=== PATIENT | female | born 1995 | race American Indian/Alaskan Native ===

== ENCOUNTER 2018-09-30 00:56 | Emergency (ER) | payer MEDICAID ==
[2018-09-30] MEDS ORDERED: IBUPROFEN PO ONE (08:14)
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
[2018-09-30 09:47] LABS: Bacteria,Urine 2+ /HPF (Negative); Bilirubin,Urine NEG (Negative); Blood,Urine NEG (Negative); Color,Urine Amber (Yellow); Mucus,Urine 3+ /HPF
[2018-09-30 09:49] LABS: HCG Qualitative,Urine Positive (Negative)
--- NOTE | 2018-09-30 12:39 | Ultrasound Report ---
ULTRASOUND OB LESS THAN 14 WEEKS FETUS ULTRASOUND OB TRANSVAGINAL History: + HCG with pelvic pain. Technique: Transabdominal and transvaginal imaging. Findings: The uterus is anteverted and measures 10 x 6 x 6 cm. No obvious uterine fibroid disease. The cervix is unremarkable. The endometrial stripe slightly complex and measures 1.6 cm. There appears to be trace endometrial fluid. No intrauterine gestational sac containing a pole and yolk sac is identified. No heart tones are demonstrated. The right ovary is unremarkable. The left ovary contains a 2.3 cm simple appearing cyst. No pelvic fluid collection. Impression: No intrauterine is demonstrated on ultrasound at this time. The endometrial stripe is slightly thickened and complex measuring up to 1.6 cm. No quantitative beta hCG levels are provided. This could represent a very early . Spontaneous with retained products of conception could be considered in the appropriate clinical scenario. Please note that an ectopic is not entirely excluded at this time.
[2018-09-30 13:11] VITALS: BP 106/56
== END 2018-09-30 13:11 | disposition home or self-care (01) ==
LOC: ED 00:56
DX: O9A.211 Injury, poisoning and certain other consequences of external causes complicating pregnancy, first trimester (principal); M54.5 Low back pain; O99.511 Diseases of the respiratory system complicating pregnancy, first trimester; J45.909 Unspecified asthma, uncomplicated; Z88.1 Allergy status to other antibiotic agents; Z88.0 Allergy status to penicillin; Z91.013 Allergy to seafood; Z3A.01 Less than 8 weeks gestation of pregnancy; V89.2XXA Person injured in unspecified motor-vehicle accident, traffic, initial encounter; Y93.89 Activity, other specified; Y92.488 Other paved roadways as the place of occurrence of the external cause; Y99.8 Other external cause status
CPT/HCPCS: 36415; 76801; 76817; 81001; 81025; 84702; 99284

== ENCOUNTER 2021-12-01 13:30 | Emergency (ER) | payer SELFPAY ==
--- NOTE | 2021-12-01 20:06 | Emergency Department Report ---
ED Psych HPI - General Chief Complaint: Psych Stated Complaint: SI Time Seen by Provider: 12/01/21 19:52 Source: patient Mode of arrival: Ambulatory - History of Present Illness Initial Comments: Ms. Jarrett is a 26-year-old female with a history of bipolar who now presents with anxiety and depression as scheduled with suicidal ideation. According to patient she says she had a mental breakdown last night before the suicide thought started crossing her mind too hard on her self. When asked specifically she denied having any plan always. Patient denies any chest pain or shortness of breath. She says she just started a new job 2 weeks ago and going through a lot of stress relating to do his job and started talking to the HR for when medical insurance was going to kick in. Patient denies any other modifying or associated factors. - Related Data Previous Rx's Medication Instructions Recorded Last Taken Type Dicyclomine [Bentyl] 20 mg PO QID #20 tablet 05/16/15 Unknown Rx Promethazine [Phenergan TAB] 25 mg PO Q6HR PRN #10 tab 05/16/15 Unknown Rx QUEtiapine [SEROquel] 100 mg PO HS #30 tablet 12/02/21 Unknown Rx Allergies Allergy/AdvReac Type Severity Reaction Status Date / Time amoxicillin Allergy Unknown Verified 12/01/21 13:40 Penicillins Allergy Unknown Verified 12/01/21 13:40 shellfish derived Allergy Unknown Verified 12/01/21 13:40 ED Review of Systems ROS: Stated complaint: SI Other details as noted in HPI Comment: All other systems reviewed and negative Psychiatric: suicidal thoughts. denies: homicidal thoughts ED Past Medical Hx - Past Medical History Previous Medical History?: Yes Hx Asthma: Yes Additional medical history: abd. pain - Social History Smoking Status: Never Smoker Substance Use Type: None - Medications Home Medications: Home Medications Medication Instructions Recorded Confirmed Last Taken Type Dicyclomine [Bentyl] 20 mg PO QID #20 tablet 05/16/15 Unknown Rx Promethazine [Phenergan TAB] 25 mg PO Q6HR PRN #10 tab 05/16/15 Unknown Rx QUEtiapine [SEROquel] 100 mg PO HS #30 tablet 12/02/21 Unknown Rx ED Physical Exam - General Limitations: No Limitations General appearance: alert, in no apparent distress, anxious - Head Head exam: Present: normal inspection - Eye Eye exam: Present: normal appearance Pupils: Present: normal accommodation - ENT ENT exam: Present: normal exam, normal orophraynx, mucous membranes moist - Neck Neck exam: Present: normal inspection, full ROM. Absent: tenderness - Respiratory Respiratory exam: Present: normal lung sounds bilaterally. Absent: respiratory distress, accessory muscle use - Cardiovascular Cardiovascular Exam: Present: regular rate, normal rhythm, normal heart sounds - GI/Abdominal GI/Abdominal exam: Present: soft, normal bowel sounds. Absent: distended, tenderness - Extremities Exam Extremities exam: Present: normal inspection, full ROM, normal capillary refill. Absent: tenderness, pedal edema, joint swelling - Back Exam Back exam: Present: normal inspection, full ROM. Absent: tenderness - Neurological Exam Neurological exam: Present: alert, oriented X3 - Psychiatric Psychiatric exam: Present: normal affect, normal mood - Skin Skin exam: Present: warm, normal color ED Course Vital Signs 12/01/21 12/01/21 12/01/21 13:36 20:30 21:00 Temperature 98.2 F 98.7 F Pulse Rate 88 81 Respiratory 14 18 Rate Blood Pressure 149/94 Blood Pressure 119/79 [Right] O2 Sat by Pulse 100 100 100 Oximetry 12/02/21 12/02/21 09:00 15:02 Temperature 98.8 F 98.8 F Pulse Rate 100 H 100 H Respiratory 16 16 Rate Blood Pressure Blood Pressure 149/94 149/94 [Right] O2 Sat by Pulse 97 97 Oximetry - Reevaluation(s) Reevaluation #1: 12/01/21 20:04 here with suicide ideation that started last night-- pt has history of bipolar -- who reports mental breakdown due to stressor at work-- will go ahead and order routine psych labs that include thyroid profile and cbc, cmp and ua with uds for any correctable cause-- will also consult with mental health for further evaluation and treatment and medical clearance. Reevaluation #2: 12/02/21 16:27 This patient discharged today after psychiatric visits to continue medication and follow-up outpatient. ED Medical Decision Making - Lab Data Result diagrams: 12/02/21 12:48 12/02/21 12:48 Critical care attestation.: If time is entered above; I have spent that time in minutes in the direct care of this critically ill patient, excluding procedure time. ED Disposition Clinical Impression: Suicide ideation, Anxiety Disposition: 01 HOME / SELF CARE / HOMELESS Is pt being admited?: No Does the pt Need Aspirin: No Condition: Stable Instructions: Suicidal Feelings: How to Help Yourself Additional Instructions: Professional and Agency Contacts To help [facility] (21/01) [place] Crisis Line: Suicide Prevention Line: Crisis Text Line: Text START to 956673 Emergency: 911 Outpatient [facility] Behavioral Health Resources: [place]: [facility] [address], [place] [address] [place]: [facility] [address] [place] [address] Saturday thru Saturday - 8am - 5pm Call to schedule an assessment for mental health and substance abuse programs [place]: [facility] Address: [address] [place] [address] Saturday thru Saturday- 7am-2pm [facility] Address: [address] [place] [address] Saturday thru Saturday: 8:30AM-5PM Prescriptions: QUEtiapine [SEROquel] 100 mg PO HS #30 tablet Referrals: GERMAN PITTMAN MD [Primary Care Provider] - 7 Days Forms: Work/School Release Form(ED)
[2021-12-02 09:02] LABS: Bacteria,Urine 1+ /HPF (Negative); Bilirubin,Urine NEG (Negative); Blood,Urine NEG (Negative); Color,Urine Amber (Yellow); Mucus,Urine 2+ /HPF; Urobilinogen,Urine < 2.0 mg/dL (<2.0)
[2021-12-02 09:09] LABS: Amphetamine Screen,Urine Negative; Benzodiazepines Screen,Urine Negative; Cannabinoid Screen,Urine Negative; Methadone Screen,Urine Negative; Opiate Screen,Urine Negative
[2021-12-02 09:20] VITALS: BP 149/94
--- NOTE | 2021-12-02 11:35 | Event Note ---
Date: 12/02/21 Patient is 26-year-old female admitted to the ER for suicidal ideation. Vital signs stable. Labs reviewed and showed a UTI. Patient started on Macrobid twice a day for 7 days. Waiting for inpatient psychiatric placement.
[2021-12-02] MEDS ORDERED: NITROFURANTOIN MONOHYD/M-CRYST 100 MG CAP PO SCH (12:00)
--- NOTE | 2021-12-02 12:55 | Consultation ---
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 Patient seen by me with her Nurse at bedside. She is calm and pleasant this morning. She reports that she was upset and stressed at work yesterday leading to her being agitated and was crying. She denies being suicidal. She wants to resume taking Seroquel which she finds beneficial Patient describes a good and stable mood this morning. She denies being depressed or excessively nervous. Patient eats and sleeps well. Patient denies panic attacks, recurrent nightmares or flashbacks. Patient denies sy mptoms suggestive of OCD or PTSD. Patient denies hallucinations, paranoia, thought interference and no features suggestive of hypomania or bijan. She completely denies suicidal or homicidal thoughts. PAST PSYCHIATRIC HISTORY: Diagnoses: Bipolar dx Suicide attempts x 1 at age 15 Prior psychiatric hospitalizations at age 15 Substance Abuse history: no Previous psychiatric medications tried: Seroquel Outpatient treatment: yes PAST MEDICAL HISTORY: Unremarkable Family Psychiatric History None reported or documented SOCIAL HISTORY Marital Status: single Living Arrangements: with boyfriend and her kids Employment Status: employed Access to guns/weapons: no Education: High school History of Abuse: no Legal History: no ROS: Constitutional: Negative for weight loss ENT: Negative for stridor Respiratory: Negative for cough or hemoptysis All other systems reviewed and are negative MENTAL STATUS General Appearance and Behavior: age appropriate, good eye contact, cooperative with questioning and polite Cooperation: Cooperative Psychomotor Behavior: within normal limits Mood: OK Affect and affective range: Congruent with stated mood Thought Process: Fluent/Logical and Goal-directed Thought Content: Within reality Speech: Normal volume and Regular rate and rhythm Intellectual Functioning Average Suicidal Ideation: Denies SI Homicidal Ideation: Denies HI Impulse Control: intact Insight and Judgment: normal insight and judgment Memory: Normal Attention: Normal Orientation: alert and oriented RECOMMENDATIONS MEDICATIONS: Seroquel 100mg qhs Risks, benefits and alternatives of medications discussed with the patient, questions answered and consent obtained from patient. PSYCHOTHERAPY: Supportive psychotherapy provided MEDICAL: Per primary team JOURNEY[employer]KER: no DISPOSITION: Per primary team, no indication for acute inpatient psychiatric hospitalization at this time LEGAL STATUS: Voluntary FOLLOW-UP: Will sign off. Please provide outpatient resources The patient agreed on the treatment plan, understood the risk, benefit, alternative treatment, potential consequence of no treatment, and gave informed consent. I have reviewed this treatment plan, including potential risks and benefits of medications, with the patient and/or family members and relevant hospital providers. Please contact with any questions and/or concerns. Medications and Allergies Allergies Allergy/AdvReac Type Severity Reaction Status Date / Time amoxicillin Allergy Unknown Verified 12/01/21 13:40 Penicillins Allergy Unknown Verified 12/01/21 13:40 shellfish derived Allergy Unknown Verified 12/01/21 13:40 Home Medications Medication Instructions Recorded Confirmed Last Taken Type Dicyclomine [Bentyl] 20 mg PO QID #20 tablet 05/16/15 Unknown Rx Promethazine [Phenergan TAB] 25 mg PO Q6HR PRN #10 tab 05/16/15 Unknown Rx Active Meds: Active Medications Nitrofurantoin Macrocrystals (Nitrofurantoin Monohyd/M-Cryst 100 Mg Cap) 100 mg PO BID [facility] Mental Status Exam - Vital signs Last Vital Signs Temp 98.8 F 12/02/21 09:00 Pulse 100 H 12/02/21 09:00 Resp 16 12/02/21 09:00 BP 149/94 12/02/21 09:00 Pulse Ox 97 12/02/21 09:00 Results Abnormal lab results 12/01/21 Range/Units Unknown Urine WBC (Auto) 19.0 H (0.0-6.0) /HPF U Epithel Cells (Auto) 21.0 H (0-13.0) /HPF All other labs normal. Assessment and Plan - Psychiatric problem (1) Bipolar affect, depressed Current Visit: Yes Status: Acute
[2021-12-02 13:25] LABS: Hematocrit 43.4 % (30.3-42.9); Hemoglobin 14.6 gm/dl (10.1-14.3); Mean Corpuscular HGB Conc 34 % (30-34); Mean Corpuscular Volume 72 fl (79-97); Platelet Count 281 K/mm3 (140-440); Red Blood Count 6.05 M/mm3 (3.65-5.03); Red Cell Distribution Width 14.6 % (13.2-15.2)
[2021-12-02 13:47] LABS: Blood Urea Nitrogen 7 mg/dL (7-17); Calcium 9.6 mg/dL (8.4-10.2); Hemolysis Index 15
[2021-12-02 13:52] LABS: BUN/Creatinine Ratio 12
[2021-12-02 15:03] LABS: Anisocytosis 1+; Basophils % (Manual) 0 % (0.0-1.8); Platelet Estimate Consistent w Auto; Total Cells Counted 100
[2021-12-02] MEDS ORDERED: QUEtiapine 100 MG TAB PO SCH (22:00)
== END 2021-12-02 15:00 | disposition home or self-care (01) ==
LOC: ED 13:30
DX: R45.851 Suicidal ideations (principal); F41.9 Anxiety disorder, unspecified; Z88.0 Allergy status to penicillin; Z20.822 Contact with and (suspected) exposure to COVID-19; Z91.013 Allergy to seafood; J45.909 Unspecified asthma, uncomplicated
CPT/HCPCS: 36415; 80048; 80307; 81001; 84703; 85007; 85025; 87086; 99284; U0003; 80320; G0480